=== PATIENT | female | born 1955 | race Caucasian/White ===

== ENCOUNTER → 2017-06-25 | Outpatient (CLI) | payer BC ==
[~2017-06-25] MED LIST: ATORVASTATIN PO; Z.0.LISINOPRIL40 MG PO; Z.0.LOPRESSOR25 MG PO
--- NOTE | 2017-06-25 13:59 | Diagnostic Imaging Report ---
EXAM: DXA BONE DENSITY INDICATIONS: Menopausal COMPARISON: None. FINDINGS: Proximal left femur bone mineral density (BMD) (g/cm2):0.737 Femur T-score (standard deviation relative to young adult mean BMD): -1.7 Femur Z-score (standard deviation relative to age-matched control group):-0.5 Lumbar bone mineral density (BMD) (g/cm2):0.819 Lumbar T-score (standard deviation relative to young adult mean BMD): -2.9 Lumbar Z-score (standard deviation relative to age-matched control group):-0.4 Change since prior exam (%): Femur:-1.1% Spine:3.3% Change since oldest prior exam (%): Femur:-1.2% Spine:+5.1% CONCLUSION: 1. Bone mineral density in the left femur is classified as osteopenia. Fracture risk is moderate. 2. Bone mineral density in the spine is classified as osteopenia. Fracture risk is moderate. World Health Organization Classification: *The Z-score is provided for informational purposes. The T-score is preferable for clinical decisions. When comparing exams, a change of >4% is considered statistically significant. SUGGESTED RECOMMENDATIONS: Normal \T\ Osteopenia:Consideration should be given to use of calcium supplementation, daily multiple vitamins and adequate exercise, as preventive measures against osteoporosis, if clinically indicated. Osteoporosis \T\ Severe Osteoporosis:In addition to the above, consideration should be given to medical therapy against osteoporosis, if clinically indicated. Dictated by: Spencer Chavez M.D. on 06/25/2017 at 13:59 Electronically approved by: Spencer Chavez M.D. on 06/25/2017 at 13:59
== END ==
LOC: MAMMO 13:01
PROVIDERS: ATTEND Internal Medicine
DX: Z12.31 Encounter for screening mammogram for malignant neoplasm of breast (principal)
CPT/HCPCS: 77067; 77080

== ENCOUNTER 2017-09-30 12:04 | Emergency (ER) | payer BC ==
[~2017-09-30] VITALS: Ht 165.1 cm; Wt 62.6 kg
== END 2017-09-30 14:32 | disposition home or self-care (01) ==
LOC: FSED 12:04
DX: M79.661 Pain in right lower leg (principal); I10 Essential (primary) hypertension
CPT/HCPCS: 80048; 93971; 99283

== ENCOUNTER → 2017-11-23 | Day surgery (SDC) | payer BC ==
[~2017-11-23] MED LIST changes: +ASPIR 8181 MG PO; +FENTANYL CITRATE/PF 100MCG/2 ML INJ ONE; +MIDAZOLAM HCL 2 MG/2 ML VIAL ONE; +PROPOFOL IV EMULSION 10 MG/ML 50 ML VIAL ONE
[2017-11-23 13:40] VITALS: BP 125/68
--- NOTE | 2017-11-23 13:48 | Operative Report ---
DATE OF PROCEDURE: November 23, 2017 REFERRING PHYSICIAN: Dr. Perez Peña PROCEDURE PERFORMED: Colonoscopy with polypectomy and biopsies. INDICATIONS FOR COLONOSCOPY: Colorectal cancer screening. History of ulcerated, sessile lesion in distal sigmoid colon. History of colon polyps. MEDICATION: Patient was done under MAC. Please see anesthesiologist's note. PROCEDURE: With the patient in the left lateral decubitus position, the flexible fiberoptic Olympus colonoscope was inserted into the rectum with ease and advanced all the way to the cecum. It was then withdrawn slowly. Mucosa overlying the cecum appeared to be within normal limits. Of note, diverticular disease was noted scattered throughout the colon. The ascending, transverse and descending colon, other than for diverticulosis, appeared to be within normal limits. An approximately 1.8 friable, sessile lesion was noted in the distal sigmoid colon, and that was biopsied and partially resected per snare electrocautery. The polypectomy site was hemoclipped. A minute polyp was also noted distal to the aforementioned lesion that was hot biopsied. The rectum appeared to be within normal limits. The scope was then retroflexed into the distal rectum, and small internal hemorrhoids were noted, none of which was actively bleeding. The scope was then straightened out. It was subsequently withdrawn. Patient tolerated the procedure well. IMPRESSION 1. Pandiverticulosis. 2. Approximately 1.8-cm, friable, sessile lesion in distal sigmoid colon, biopsied and partially resected per snare electrocautery. Polypectomy site prophylactically hemoclipped. 3. Minute polyp, distal sigmoid, hot biopsied. 4. Internal hemorrhoids, none actively bleeding. PLAN: Follow up histology. Initiate high-fiber, low-fat diet. Initiate high-fiber supplement. Timing of followup colonoscopy pending pathology report. Job#: [id number] cc:PEREZ PEÑA MD
== END | disposition home or self-care (01) ==
LOC: OR 09:29
PROVIDERS: ATTEND Internal Medicine Gastroenterology
DX: Z12.11 Encounter for screening for malignant neoplasm of colon (principal); K63.5 Polyp of colon; K63.89 Other specified diseases of intestine; K57.30 Diverticulosis of large intestine without perforation or abscess without bleeding; K64.8 Other hemorrhoids; K44.9 Diaphragmatic hernia without obstruction or gangrene; I10 Essential (primary) hypertension; E78.5 Hyperlipidemia, unspecified; I45.10 Unspecified right bundle-branch block; R00.1 Bradycardia, unspecified; Z01.810 Encounter for preprocedural cardiovascular examination; Z79.82 Long term (current) use of aspirin; Z85.3 Personal history of malignant neoplasm of breast
CPT/HCPCS: 45384; 45385; 93005; J2250; 45380

== ENCOUNTER 2018-05-17 12:34 | Emergency (ER) | payer BC ==
[~2018-05-17] VITALS: Ht 165.1 cm; Wt 62.6 kg
[~2018-05-17 12:34] MED LIST changes: -FENTANYL CITRATE/PF 100MCG/2 ML INJ ONE; -MIDAZOLAM HCL 2 MG/2 ML VIAL ONE; -PROPOFOL IV EMULSION 10 MG/ML 50 ML VIAL ONE
--- NOTE | 2018-05-17 13:59 | Diagnostic Imaging Report ---
Exam: AP pelvis and right hip History: Pain Comparison: None. Findings: No fracture or malalignment. Acetabular over coverage with proximal profunda. No significant hip arthropathy. No abnormal soft tissue calcification or soft tissue defect. Impression: No acute osseous abnormality Signed by: Dr. Gualberto Kennedy M.D. on 05/17/2018 1:55 PM
== END 2018-05-17 14:09 | disposition home or self-care (01) ==
LOC: FSED 12:34
DX: M25.551 Pain in right hip (principal); I10 Essential (primary) hypertension; E78.5 Hyperlipidemia, unspecified
CPT/HCPCS: 99283

== ENCOUNTER 2018-06-14 11:43 | Emergency (ER) | payer BC ==
[~2018-06-14] VITALS: Ht 160 cm; Wt 60.3 kg
[2018-06-14] MEDS: SODIUM CHLORIDE 0.9% 1000ML 1,000 ML IV SCH ×2 (12:34→13:48)
--- NOTE | 2018-06-14 13:59 | Diagnostic Imaging Report ---
EXAM: CT ABDOMEN AND PELVIS with IV CONTRAST DATE: 06/14/2018 Time stamp on Exam: 12:48 PM INDICATION: Left lower quadrant pain COMPARISON: None TECHNIQUE: The abdomen and pelvis were scanned using a multidetector helical scanner. Coronal and sagittal reformations were obtained. Routine protocol performed. Low-dose technique was utilized to maintain the lowest dose possible to the patient. IV Contrast: 100 cc of Isovue-370 Oral Contrast: None Radiation Dose: Total DLP 423.29 mGy*cm Estimated effective dose: DLP x 0.015 x size factor FINDINGS: LOWER THORAX: No consolidations LIVER: Fatty infiltration of the liver without evidence of mass or capsular irregularity. BILIARY: The gallbladder is unremarkable. No ductal dilatation. SPLEEN: No masses PANCREAS: No masses ADRENALS: No nodules KIDNEYS: Symmetric perfusion. No enhancing masses. No hydronephrosis. Right upper pole renal cystic lesion. GI TRACT: Scattered diverticula throughout the colon most predominant in the left colon. Wall thickening in the sigmoid colon region with small adjacent fluid collection likely represents diverticulitis but malignancy could have a similar appearance. There is increased vascularity involving the inferior mesenteric vein in this region. VESSELS: Mild vascular calcification. PERITONEUM/RETROPERITONEUM: No free air or fluid LYMPH NODES: No lymphadenopathy REPRODUCTIVE ORGANS: Unremarkable BLADDER: Unremarkable SOFT TISSUES: Unremarkable BONES: No suspicious bone lesions. Facet arthropathy in the lower left lumbar spine. Degenerative changes of the lower thoracic and lumbar spine. IMPRESSION: 1. Wall thickening in the sigmoid colon region suggestive of diverticulitis versus malignancy. 2. Follow-up colonoscopy would be of benefit. 3. Fatty infiltration of the liver without evidence of a mass. Signed by: Dr. Dimas Hernandez DO on 06/14/2018 1:56 PM
[2018-06-14 14:20] VITALS: BP 128/70
== END 2018-06-14 14:23 | disposition home or self-care (01) ==
LOC: FSED 11:43
DX: R10.32 Left lower quadrant pain (principal); K57.32 Diverticulitis of large intestine without perforation or abscess without bleeding; I10 Essential (primary) hypertension
CPT/HCPCS: 74177; 80053; 85025; 99283

== ENCOUNTER → 2018-06-27 | Outpatient (CLI) | payer BC ==
--- NOTE | 2018-06-27 09:57 | Diagnostic Imaging Report ---
Exam: Bone mineral density study. History: Osteopenia. Comparison: 06/25/2017 Discussion: Evaluation of the left hip, right hip, left forearm and lumbar spine was performed utilizing DEXA Hologic bone densitometer. The study is technically adequate. Left hip total bone mineral density: 0.746gm/cm2, T-score is -1.6, Z-score is -0.4. Left hip femoral neck bone mineral density: 0.663gm/cm2, T-score is -1.7, Z-score is -0.2. Lumbar spine total bone mineral density:0.807gm/cm2, T-score is-2.2, Z-score is -0.5. Impression: 1. Osteopenia of the left hip, fracture risk is increased 2. Osteopenia of the lumbar spine, fracture risk is increased The BMD change versus baseline is 0% and the BMD change versus previous 1.2% . Least significant change (LSC) for bone mineral density as provided by repairer auto clocks is 0.023 g/cm2 for lumbar spine and 0.027 g/cm2 for total hip. 10 -year fracture risk per WHO Fracture Risk Assessment Tool (FRAX) for: Major osteoporotic fracture is 8.8% Hip fracture is 1.0% The above fracture probability is calculated for an untreated patient. Fracture probably may be lower if the patient has received treatment. All treatment decisions require clinical judgment and consideration of individual patient factors, including patient preferences, comorbidities, previous drug use and risk factors not captured in the FRAX model (e.g. frailty, falls, vitamin D deficiency, increased bone turnover, interval significant decline in BMD). The patient's fracture risk is compared to an age-matched control. Medical evaluation for secondary causes of low bone bone mineral density may be appropriate. Correlate clinically for the necessity and timing of the next bone mineral density study. Signed by: Dr. Jong Noyola M.D. on 06/27/2018 9:54 AM
== END ==
LOC: MAMMO 08:15
PROVIDERS: ATTEND Internal Medicine
DX: Z12.31 Encounter for screening mammogram for malignant neoplasm of breast (principal); M81.0 Age-related osteoporosis without current pathological fracture
CPT/HCPCS: 77067; 77080

== ENCOUNTER 2018-08-08 09:40 | Emergency (ER) | payer BC ==
[~2018-08-08] VITALS: Ht 160 cm; Wt 60.3 kg
[2018-08-08] MEDS ORDERED: KETOROLAC TROMETHAMINE 30 MG/ML VIAL IV ONE (11:40)
--- NOTE | 2018-08-08 12:52 | Diagnostic Imaging Report ---
EXAM: CT ABDOMEN AND PELVIS with IV CONTRAST INDICATION: Lower abdominal pain COMPARISON: CT abdomen/pelvis with contrast 06/14/2018. TECHNIQUE: The abdomen and pelvis were scanned using a multidetector helical scanner. Coronal and sagittal reformations were obtained. Routine protocol performed. IV Contrast: 100 cc of Isovue-370 Oral Contrast: None Radiation Dose: Total DLP 368.3 mGy*cm Dose modulation, iterative reconstruction, and/or weight based adjustment of the mA/kV was utilized to reduce the radiation dose to as low as reasonably achievable. FINDINGS: LOWER THORAX: Unremarkable. LIVER/BILIARY: No evidence of mass. The gallbladder is unremarkable. No ductal dilatation. SPLEEN: No splenomegaly or mass. PANCREAS: No evidence of mass or ductal dilatation. ADRENALS: No adrenal nodule. KIDNEYS: No evidence of hydronephrosis or solid mass. There is a 3 mm nonobstructing left midpole stone. Right upper pole cyst. GI TRACT: Again noted are scattered diverticula, most pronounced in the sigmoid colon. There is focal wall thickening in the sigmoid colon, as before. There are surrounding inflammatory changes with interval increase in size of a fluid collection inferiorly, now measuring up to 4.2 x 3.4 x 7.5 cm, previously 3.1 x 3.2 x 6.1 cm. Collection contains fecal contents and air. The collection inferiorly abuts the bladder with surrounding inflammatory changes, and superiorly is ill-defined near the sigmoid colon. There is surrounding mesenteric vascular engorgement. No evidence of bowel obstruction. Small hiatal hernia. VESSELS: Scattered atherosclerotic changes of the abdominal aorta and branch vessels. PERITONEUM/RETROPERITONEUM: No free air or fluid LYMPH NODES: No lymphadenopathy PELVIC STRUCTURES: Unremarkable SOFT TISSUES: Unremarkable BONES: No acute osseous amount he. No suspicious lytic or blastic lesions. Degenerative changes of the visualized spine. IMPRESSION: Findings of sigmoid diverticulosis with extensive inflammatory changes and wall thickening suggestive of diverticulitis. Interval increase in size of an adjacent fluid collection, measuring up to 7.5 cm, previously 6.1 cm. The collection contains fecal contents and air, suggestive of fistula. Given the focal colonic wall thickening, malignancy is possible, and follow-up colonoscopy is recommended for further evaluation. Signed by: Dr. Steve Simpson MD on 08/08/2018 12:49 PM
[2018-08-08 13:24] VITALS: BP 123/82
== END 2018-08-08 13:30 | disposition home or self-care (01) ==
LOC: FSED 09:40
DX: R30.0 Dysuria (principal); D64.9 Anemia, unspecified; I10 Essential (primary) hypertension; E78.5 Hyperlipidemia, unspecified
CPT/HCPCS: 74177; 80048; 80076; 81003; 85025; 87086; 99283; J1885

== ENCOUNTER 2018-08-22 06:20 | Inpatient (IN) | payer BC ==
[2018-08-20 11:55] LABS: BASOPHILS % 0.4 % (0.0-1.0); EOSINOPHILS # (AUTO) 0.1 (0.0-0.4); HEMATOCRIT 35.3 % (34.2-44.1); HEMOGLOBIN 11.6 g/dL (12.0-16.0); LYMPHOCYTES # (AUTO) 1.2 (1.0-3.2); LYMPHOCYTES % 16.4 % (18.0-39.1); MEAN CORPUSCULAR HEMOGLOBIN 30.3 pg (28-32); MEAN CORPUSCULAR HGB CONC 32.9 g/dL (31-35); MEAN CORPUSCULAR VOLUME 92.2 fL (81-99); MONOCYTES # (AUTO) 0.6 (0.2-0.8); MONOCYTES % 8.3 % (4.4-11.3); NEUTROPHILS # (AUTO) 5.3 (2.1-6.9); NEUTROPHILS % 73.5 % (38.7-80.0); PLATELET COUNT 285 x10e3/uL (140-360); RED BLOOD COUNT 3.83 x10e6/uL (3.6-5.1)
[2018-08-20 12:13] LABS: ANION GAP 11.6 mmol/L (8-16); BLOOD UREA NITROGEN 11 mg/dL (7-26); BUN/CREATININE RATIO 15 (6-25); CALCIUM 9.9 mg/dL (8.4-10.2); CARBON DIOXIDE 29 mmol/L (22-29); CHLORIDE 103 mmol/L (98-107); CREATININE, SERUM 0.74 mg/dL (0.57-1.11); EST GLOMERULAR FILTRATION RATE > 60 ML/MIN (60-); GLUCOSE 105 mg/dL (74-118); POTASSIUM 4.6 mmol/L (3.5-5.1); SODIUM 139 mmol/L (136-145)
--- NOTE | 2018-08-20 12:38 | Diagnostic Imaging Report ---
EXAMINATION: CHEST 2 VIEWS INDICATION: ^MD ORDER ^PRE ADMIT COMPARISON: None FINDINGS: PA and lateral views TUBES and LINES: None. LUNGS: Lungs are well inflated. There is no evidence of pneumonia or pulmonary edema. PLEURA: No pleural effusion or pneumothorax. HEART AND MEDIASTINUM: The cardiomediastinal silhouette is unremarkable. Airways mildly calcified and tortuous. BONES AND SOFT TISSUES: No acute osseous lesion. Degenerative changes of spine. Small round metallic density projecting over right breast soft tissues. UPPER ABDOMEN: No free air under the diaphragm. IMPRESSION: No acute thoracic abnormality. Signed by: Dr. Kian Velasco MD on 08/20/2018 12:34 PM
[~2018-08-22] VITALS: Ht 167.6 cm; Wt 59.0 kg
[2018-08-22] VITALS (14 sets, daily range): BP systolic 96–118; BP diastolic 43–68
[~2018-08-22 06:20] MED LIST changes: +CITRACAL + D E1 EACH PO; +CRAN-MAX500 MG PO; +OMEGA 3 1,0001 EACH PO; +[UNRECOGNIZED DRUG - OTHER] PO
[2018-08-22] MEDS ORDERED: LEVAQUIN500 MG PO (07:25)
[2018-08-22] MEDS ORDERED: FLAGYL250 MG PO (07:26)
[2018-08-22] MEDS ORDERED: ONDANSETRON HCL INJ 2MG/ML 2ML 2 MG/ML VIAL IV PRN (11:45)
[2018-08-22] MEDS ORDERED: HYDROMORPHONE 0.2MG/ML-SOD CHL 30ML PCA SYRINGE IV PRN (11:45)
[2018-08-22] MEDS ORDERED: NALOXONE HCL INJ 0.4 MG/ML AMP IV PRN (11:45)
[2018-08-22] MEDS ORDERED: ACETAMINOPHEN 1000 MG/100 ML IV PRN (11:45)
[2018-08-22] MEDS ORDERED: HYDROMORPHONE 2MG/ML 2 MG/ML ML ONE (11:52)
[2018-08-22] MEDS: SODIUM CHLORIDE 0.9% 250ML IRRIG IR SCH ×4 (12:57→23:33)
[2018-08-22] MEDS: DEXTROSE 5%/LACTATED RINGERS 1,000 ML IV SCH ×2 (13:00→23:08)
--- NOTE | 2018-08-22 13:20 | NUR ---
patient received from OR. placed on monitor. see admit assess. midline abd incision with dry and intact dressing in place. CESARIO x1 with minimal bloody drainage. NGT to low cont suction. SCD's in place. D5LR at 100cc/hr. NONFARM ANIMAL CARETAKER dilaudid in place and pain well controlled. BP slightly low 89/44 at this time. will monitor closely. family at BS.
[2018-08-22] MEDS: METRONIDAZOLE 500MG/NS 100ML 100 ML IV SCH ×3 (13:35→23:37)
[2018-08-22] MEDS: CEFTRIAXONE SOD 1 GM/NS 50 ML 50 ML IV SCH (13:35)
[2018-08-22] MEDS: PANTOPRAZOLE 40 MG 10ML VIAL IV SCH (14:50)
--- NOTE | 2018-08-22 16:04 | Consultation ---
DATE OF CONSULTATION: 08/22/2018 REASON FOR CONSULTATION: Medical management. HISTORY OF PRESENT ILLNESS: This is a 62-year-old white woman, who was recently diagnosed with sigmoid diverticulitis with adjacent pelvic abscess. Today, the patient underwent exploratory laparotomy with low anterior colon resection, left salpingo-oophorectomy, and drainage of abscess. The surgery was performed by Dr. Samuel Galicia. The patient tolerated the surgery quite well. Two days prior to surgery, the patient's white blood cell count was 7200 with 73% segmented neutrophils. The patient's hemoglobin was 11.86 g/dL. Also 2 days prior to admission, the patient's BUN and creatinine were 11 and 0.74 respectively with potassium of 4.6. The patient is admitted to the intensive care unit from the operating room. REVIEW OF SYSTEMS: GENERAL: Weight, she has lost 5 pounds over the last few weeks because of poor appetite. No fever or chills lately. HEENT: No headaches. No visual changes. CARDIOVASCULAR/RESPIRATORY: No chest pain. No shortness of breath or cough. GI: She has a history of diverticular disease and was initially diagnosed with diverticulitis on August 09, 2018. The patient has been on metronidazole and levofloxacin for the last 2 weeks. The patient has a history of recurrent bouts of diverticulitis. : No UTI symptoms. NEUROMUSCULAR: No limb weakness or numbness. PAST MEDICAL HISTORY: 1. Hypertensive heart disease. 2. Diverticular disease. 3. Hyperlipidemia. PAST SURGICAL HISTORY: 1. section. 2. Bladder suspension in October 2017. 3. Colonoscopy in October 2017, which was unremarkable, but did reveal diverticular disease. 4. Status post exploratory laparotomy with colon resection and left salpingo-oophorectomy today. FAMILY HISTORY: The patient has a sister, who had breast cancer in her 40s and hypertension in brother and father, and brother with diabetes mellitus. SOCIAL HISTORY: This woman is retired. She is , lives with her . She drinks alcohol socially. Denies any history of tobacco or illicit drug use. MEDICATIONS: 1. Metronidazole 500 mg t.i.d. for the last two weeks. 2. Levofloxacin 500 mg daily for the last two weeks. 3. Calcium with vitamin D once daily. 4. Cranberry extract once daily. 5. Lisinopril 40 mg daily. 6. Metoprolol tartrate 25 mg b.i.d. 7. [employer]-3 fish oil 1000 mg daily. 8. Atorvastatin 10 mg at bedtime. 9. Women's vitamin once daily. PHYSICAL EXAMINATION: GENERAL: She is awake, alert, fluent, in distress, very pleasant. She is currently in the intensive care unit. Her and adult daughter are at bedside. VITAL SIGNS: Height 5 feet 6 inches, weight 126 pounds, BMI is 20. Blood pressure 96/43, pulse 60, respiratory rate is 16, temperature 96.2, and oxygen saturation 100% on room air. INTEGUMENT: Skin is warm and dry. Slight pallor. No jaundice or diaphoresis. HEENT: Anicteric sclerae with moist mucous membranes. The patient has a nasogastric tube in place. NECK: Supple. CARDIOVASCULAR: Distant heart sounds. Regular rate and rhythm. LUNGS: No rales. No rhonchi or wheezes. ABDOMEN: Soft. No bowel sounds are auscultated. Her abdominal surgical incision is currently dressed. EXTREMITIES: No edema or deformity. NEUROLOGIC: Intact. DIAGNOSES: 1. Status post exploratory laparotomy with colon resection, left salpingo- oophorectomy and pelvic abscess drainage. 2. Diverticular disease. 3. Hypertensive heart disease. PLAN: 1. We will monitor the patient in the intensive care unit overnight. 2. Intravenous antibiotics. 3. Encourage incentive spirometer use to prevent atelectasis. 4. Mobilize with therapy. 5. We will follow hemoglobin and hematocrit as well as white blood cell count. 6. Follow electrolytes and renal function. 7. Pain control. I spent 45 minutes in the care of this intensive care unit patient. MD DELILAH Jacobs/FAITH /[id number]
[2018-08-22] MEDS: METOPROLOL TARTRATE 25 MG TAB PO SCH (17:40)
--- NOTE | 2018-08-22 17:55 | Operative Report ---
DATE OF PROCEDURE: 08/22/2018 SURGEON: Samuel Galicia MD PREOPERATIVE DIAGNOSES: Perforated sigmoid diverticulitis with left pelvic walled-off abscess. POSTOPERATIVE DIAGNOSES: Perforated sigmoid diverticulitis with left pelvic walled-off abscess. OPERATION PERFORMED: Exploratory laparotomy, low anterior colon resection, left salpingo oophorectomy and drainage of left pelvic abscess, and mobilization of the splenic flexure. NASCAR DRIVER: Dr. Alfie Galicia and DAVID Lamb. ANESTHESIA: General. COMPLICATIONS: None. ESTIMATED BLOOD LOSS: 100 mL. DESCRIPTION OF PROCEDURE: With the patient lying in bed in the supine position under good general endotracheal anesthesia, the abdomen was prepped with Betadine solution and draped in the usual manner. A lower midline incision was made through the patient's old scar, it was carried down through the subcutaneous tissue down to the midline fascia. The midline fascia was opened. Peritoneum was opened and the abdomen was entered. Upon entering the abdominal cavity, examination revealed that there was a palpable mass in the pelvis involving the colon, the uterus and the bladder opening stuck to the left side. Further exploration revealed that the patient had diverticulosis of the entire colon, but the area along the distal transverse colon started to have some more normal pliable appearing colon, which we decided to use this area as the proximal margin of resection. The rest of the abdominal exploration was otherwise within normal limits. The left colon was then mobilized of the lateral gutter and the splenic flexure was brought down. The splenic flexure was then mobilized downward using the EnSeal device and the colon was easily mobilized all the way down to the mid transverse colon. Once this was done, the distal transverse colon was then divided with an application of a THI-75 stapler and the mesentery of the colon was then slowly and carefully taken down using the EnSeal device all the way down to the sigmoid colon at which point the inflammatory mass was present. At this point, we slowly and carefully the bladder from the uterus and immediately an abscess was entered, which was all aspirated. There was a collection that was being walled off by the uterus and the left adnexa and the bladder all of this was aspirated and the bladder was then from the uterus. The pedicle of the left adnexa was then ligated with 0-Vicryl suture ligature and the adnexa was then divided with the EnSeal device. The tube and ovary were then swung medially that were totally plastered to the horn of the uterus on the left side from the inflammatory process and all of this was resected with the horn of the uterus oversewn with interrupted [id number] of 0 Vicryl. This gave us a satisfactory resection without any bleeding and the left ovary and tube were sent for pathological examination. The colon was then from the uterus underneath and the upper rectum was then freed up and divided between clamps and the rest of the mesentery of the sigmoid colon was then taken down with the EnSeal device and the colon was sent for pathological examination. Proximal and distal ends of the colon were then cleared for and prepared for anastomosis and the transverse colon was then brought down to the upper rectum. A posterior row of interrupted 3-0 silks was then done. The proximal staple line was removed and an internal row of 3-0 chromic was then done all the way around. After this was done, gloves and instruments were exchanged and the anastomosis was completed with anterior seromuscular 3-0 silk sutures. This gave us a satisfactory anastomosis without any tension. The whole area was then thoroughly irrigated. Perfect hemostasis was ascertained. A 10 flat Beau-Guillermo was then left and brought out through the left lower quadrant and placed in the pelvis in the area of the previous collection and the abdomen was then closed in layers. The peritoneum was closed with a running suture of #1 Vicryl. The midline fascia was closed with a running suture of #1 Vicryl and the skin was closed with clips. A dressing was applied. The sponge, lap, and needle count was correct. The patient tolerated the procedure well and returned to the recovery room in stable condition. MD LAURIE Betancur/FAITH /[id number]
[2018-08-22] MEDS ORDERED: DEXAMETHASONE SOD PHOS INJ 4 MG/ML VIAL ONE (18:18)
[2018-08-22] MEDS ORDERED: NEOSTIGMINE 5 MG/5ML SYR ONE (18:18)
[2018-08-22] MEDS ORDERED: LIDOCAINE HCL 2% LOCAL INJ 5 ML SDV VIAL INJ ONE (18:18)
[2018-08-22] MEDS ORDERED: SEVOFLURANE INHAL SOLN 250 ML PEN BTL ONE (18:18)
[2018-08-22] MEDS ORDERED: ACETAMINOPHEN 1000 MG/100 ML IV ONE (18:18)
[2018-08-22] MEDS ORDERED: CEFOXITIN SOD 1 GM VIAL ONE (18:18)
[2018-08-22] MEDS ORDERED: ONDANSETRON HCL INJ 2MG/ML 2ML 2 MG/ML VIAL ONE (18:18)
[2018-08-22] MEDS ORDERED: PHENYLEPHRINE HCL 1% 10 MG/ML VIAL ONE (18:18)
[2018-08-22] MEDS ORDERED: GLYCOPYRROLATE INJ 1MG/ 5 ML SYR ONE (18:18)
[2018-08-22] MEDS ORDERED: ROCURONIUM BROMIDE 10 MG/ML 5ML VIAL ONE (18:18)
[2018-08-22] MEDS ORDERED: PROPOFOL IV EMULSION 10 MG/ML 20 ML VIAL ONE (18:18)
[2018-08-22] MEDS ORDERED: KETOROLAC TROMETHAMINE 30 MG/ML VIAL ONE (18:18)
[2018-08-22] MEDS ORDERED: MIDAZOLAM HCL 2 MG/2 ML VIAL ONE (18:46)
[2018-08-22] MEDS ORDERED: FENTANYL CITRATE/PF 100MCG/2 ML INJ ONE (18:46)
[2018-08-23] VITALS (20 sets, daily range): BP systolic 103–168; BP diastolic 58–91
[2018-08-23] MEDS: SODIUM CHLORIDE 0.9% 250ML IRRIG IR SCH ×5 (04:13→19:45)
[2018-08-23 04:49] LABS: BASOPHILS % 0.1 % (0.0-1.0); HEMATOCRIT 30.3 % (34.2-44.1); HEMOGLOBIN 9.9 g/dL (12.0-16.0); LYMPHOCYTES # (AUTO) 0.5 (1.0-3.2); LYMPHOCYTES % 4.1 % (18.0-39.1); MEAN CORPUSCULAR HEMOGLOBIN 30.1 pg (28-32); MEAN CORPUSCULAR HGB CONC 32.7 g/dL (31-35); MEAN CORPUSCULAR VOLUME 92.1 fL (81-99); MONOCYTES # (AUTO) 0.6 (0.2-0.8); MONOCYTES % 4.6 % (4.4-11.3); NEUTROPHILS # (AUTO) 11.9 (2.1-6.9); NEUTROPHILS % 90.7 % (38.7-80.0); PLATELET COUNT 256 x10e3/uL (140-360); RED BLOOD COUNT 3.29 x10e6/uL (3.6-5.1); RED CELL DISTRIBUTION WIDTH 14.3 % (11.7-14.4)
[2018-08-23 05:08] LABS: ALANINE AMINOTRANSFERASE 11 IU/L (0-55); ALBUMIN 2.6 g/dL (3.5-5.0); ALBUMIN/GLOBULIN RATIO 0.8 (0.8-2.0); ALKALINE PHOSPHATASE 32 IU/L (40-150); ANION GAP 11.3 mmol/L (8-16); BLOOD UREA NITROGEN 13 mg/dL (7-26); BUN/CREATININE RATIO 17 (6-25); CALCIUM 8.7 mg/dL (8.4-10.2); CARBON DIOXIDE 23 mmol/L (22-29); CHLORIDE 105 mmol/L (98-107); CREATININE, SERUM 0.77 mg/dL (0.57-1.11); EST GLOMERULAR FILTRATION RATE > 60 ML/MIN (60-); GLUCOSE 188 mg/dL (74-118); POTASSIUM 4.3 mmol/L (3.5-5.1); SODIUM 135 mmol/L (136-145)
[2018-08-23] MEDS: METRONIDAZOLE 500MG/NS 100ML 100 ML IV SCH ×3 (05:20→18:01)
--- NOTE | 2018-08-23 07:35 | NUR ---
Dysrythmia. Pt has displayed sinus arrhythmia with PAC's since arrival to ICU. The pt also appears to flip her axis frequently. The heart rate has been from 59 [address] Guerrier's answering service to notify. On coming nurse Lorene GARCIA and the charge nurse are also aware.
--- NOTE | 2018-08-23 07:49 | NUR ---
Consult for Dr Jeffries has been called to Dr Vizcaino.
[2018-08-23] MEDS: METOPROLOL TARTRATE INJ 1 MG/ML VIAL IV SCH (08:21)
[2018-08-23] MEDS: PANTOPRAZOLE 40 MG 10ML VIAL IV SCH (08:22)
[2018-08-23] MEDS: LISINOPRIL 20 MG TAB PO SCH (08:22)
[2018-08-23] MEDS: METOPROLOL TARTRATE 25 MG TAB PO SCH ×2 (08:22→16:07)
[2018-08-23] MEDS ORDERED: LISINOPRIL PO SCH (09:00)
--- NOTE | 2018-08-23 10:41 | NUR ---
pt ambulating sitting in chair. espinoza removed as per order.
[2018-08-23] MEDS: DEXTROSE 5%/LACTATED RINGERS 1,000 ML IV SCH ×2 (13:20→18:01)
[2018-08-23] MEDS: CEFTRIAXONE SOD 1 GM/NS 50 ML 50 ML IV SCH (14:46)
--- NOTE | 2018-08-23 16:27 | NUR ---
called dr dhillon to see if pt can go to [facility] w/ tele as per dr winter. ok to place espinoza cath if no urine by 1939.
--- NOTE | 2018-08-23 19:35 | NUR ---
NURSING REPORT GIVEN TO MERRITT GARCIA AT [facility]
--- NOTE | 2018-08-23 20:27 | NUR ---
RECEIVED PATIENT IN BEDSIDE CHAIR IN STABLE CONDITION, FAMILY MEMBER AT SIDE. CALL LIGHT WITHIN REACH. NO NEEDS VOICED. WILL CONTINUE TO MONITOR THE PATIENT.
--- NOTE | 2018-08-23 23:16 | Consultation ---
DATE OF CONSULTATION: 08/23/2018 Cardiology Consult Note REASON FOR CONSULT: Nonsustained ventricular tachycardia. CHIEF COMPLAINT: Abdominal pain. HISTORY OF PRESENT ILLNESS: The patient is a 62-year-old female with no prior history of cardiovascular disease who presented for abdominal surgery. She underwent surgery yesterday without any complications, is doing well from postsurgical point of view, was noted to have about 10 beats of nonsustained ventricular wide-complex tachycardia on telemetry. She was asymptomatic at that time. She does not report any dizziness, palpitations, chest pain or shortness of breath. She has been seen previously in our clinic for abnormal EKG, and a stress test and echocardiogram done at that time were completely normal. She does not have any complaints at this time other than some postsurgical pain. PAST MEDICAL HISTORY: 1. Hypertension. 2. Hyperlipidemia. 3. Diverticular disease. PAST SURGICAL HISTORY: 1. section. 2. Bladder suspension. 3. Colonoscopy. 4. Exploratory laparotomy with colon resection and left salpingo-oophorectomy earlier this admission. SOCIAL HISTORY: Drinks socially. No history of tobacco or drug use. FAMILY HISTORY: Noncontributory. OUTPATIENT MEDICATIONS: Reviewed. ALLERGIES: NO KNOWN DRUG ALLERGIES. REVIEW OF SYSTEMS: As per HPI, otherwise negative. OBJECTIVE: VITAL SIGNS: Temperature afebrile, pulse 68, respiratory rate 20, blood pressure 136/66, saturating 97% on room air. GENERAL: Well-developed, well-nourished white female, in no acute distress. CARDIOVASCULAR: Regular rate and rhythm. No murmurs, rubs, or gallops. Palpable carotid pulses. Palpable radial pulses. Lower extremity without any edema or ulcerations. Warm, well perfused. ABDOMEN: Soft. Tenderness to palpation near the surgical site. No rebound or guarding. NEURO AND PSYCH: Alert and oriented to person, place, and time. Normal affect. INPATIENT MEDICATIONS: Reviewed. TELEMETRY DATA: Reviewed. One episode of nonsustained ventricular tachycardia. Otherwise, no significant arrhythmias. ASSESSMENT: 1. Nonsustained ventricular tachycardia. 2. Hypertension. PLAN: Continue metoprolol. Keep potassium above 4 and magnesium above 2. Currently asymptomatic, has had a normal echo and a stress test last year in the office. No risk factors. No other cardiovascular symptoms. Nonsustained ventricular tachycardia, likely in the setting of postoperative state. Continue monitoring closely on telemetry. Further testing only indicated if continues to have more ventricular tachycardia. Otherwise, no further therapy is needed. Thank you for this consult. We will continue to follow. MD TOMMY Sahni/MODL /[id number]
[2018-08-24] VITALS (7 sets, daily range): BP systolic 141–157; BP diastolic 55–76
[2018-08-24] MEDS: SODIUM CHLORIDE 0.9% 250ML IRRIG IR SCH ×7 (00:37→23:45)
[2018-08-24] MEDS: METRONIDAZOLE 500MG/NS 100ML 100 ML IV SCH ×4 (00:50→17:35)
[2018-08-24] MEDS: DEXTROSE 5%/LACTATED RINGERS 1,000 ML IV SCH ×2 (04:33→16:41)
[2018-08-24 06:03] LABS: BASOPHILS % 0.1 % (0.0-1.0); HEMATOCRIT 31.3 % (34.2-44.1); HEMOGLOBIN 10.1 g/dL (12.0-16.0); LYMPHOCYTES # (AUTO) 1.3 (1.0-3.2); LYMPHOCYTES % 9.6 % (18.0-39.1); MEAN CORPUSCULAR HEMOGLOBIN 30.1 pg (28-32); MEAN CORPUSCULAR HGB CONC 32.3 g/dL (31-35); MEAN CORPUSCULAR VOLUME 93.2 fL (81-99); MONOCYTES # (AUTO) 0.7 (0.2-0.8); MONOCYTES % 5.3 % (4.4-11.3); NEUTROPHILS # (AUTO) 11.1 (2.1-6.9); NEUTROPHILS % 84.5 % (38.7-80.0); PLATELET COUNT 217 x10e3/uL (140-360); RED BLOOD COUNT 3.36 x10e6/uL (3.6-5.1); RED CELL DISTRIBUTION WIDTH 14.6 % (11.7-14.4)
[2018-08-24 06:20] LABS: ALANINE AMINOTRANSFERASE 9 IU/L (0-55); ALBUMIN 2.6 g/dL (3.5-5.0); ALBUMIN/GLOBULIN RATIO 0.8 (0.8-2.0); ALKALINE PHOSPHATASE 36 IU/L (40-150); BLOOD UREA NITROGEN 7 mg/dL (7-26); BUN/CREATININE RATIO 10 (6-25); CALCIUM 8.8 mg/dL (8.4-10.2); CARBON DIOXIDE 31 mmol/L (22-29); CHLORIDE 105 mmol/L (98-107); CREATININE, SERUM 0.67 mg/dL (0.57-1.11); EST GLOMERULAR FILTRATION RATE > 60 ML/MIN (60-); GLUCOSE 131 mg/dL (74-118); MAGNESIUM 1.7 MG/DL (1.3-2.1); SODIUM 141 mmol/L (136-145)
--- NOTE | 2018-08-24 07:11 | NUR ---
report given to oncoming nurse for continuity of care. patient in stable condition. no needs voiced at this time. bed locked and in lowest position, call light within easy reach.
[2018-08-24] MEDS: METOPROLOL TARTRATE INJ 1 MG/ML VIAL IV SCH (09:00)
[2018-08-24] MEDS: PANTOPRAZOLE 40 MG 10ML VIAL IV SCH ×2 (09:00→10:11)
[2018-08-24] MEDS: METOPROLOL TARTRATE 25 MG TAB PO SCH ×2 (09:30→21:00)
--- NOTE | 2018-08-24 12:30 | NUR ---
OOB WITH STANDBY ASSIST TO BS COMMODE, CALL LIGHT WITHIN REACH
[2018-08-24] MEDS: LISINOPRIL 20 MG TAB PO SCH (12:32)
--- NOTE | 2018-08-24 13:29 | Progress Note ---
DATE: 08/24/2018 Cardiology Progress Note SUBJECTIVE: The patient denies chest pain or shortness of breath. OBJECTIVE: VITAL SIGNS: Temperature 96.6 degrees, pulse 66 respiratory rate 16, blood pressure 141/76, oxygen saturation 97% on room air. GENERAL: Awake, alert, in no acute distress. LUNGS: Clear to auscultation bilaterally. No wheezes or crackles. CARDIOVASCULAR: Normal rate, regular rhythm. No murmur. Normal S1, S2. ABDOMEN: Soft, nontender. EXTREMITIES: No edema. NEURO: Nonfocal exam. CARDIAC MEDICATIONS: Lisinopril 40 mg p.o. daily, metoprolol 25 mg p.o. b.i.d. LABORATORY DATA: WBC 13.13, hemoglobin 10.1, hematocrit 31.3, platelets 217. Sodium 141, potassium 4, chloride 105, CO2 of 31, BUN 7, creatinine 0.67. TELEMETRY: Sinus bradycardia. IMPRESSION: 1. Nonsustained ventricular tachycardia. 2. Hypertension. RECOMMENDATIONS: Continue current cardiac medications. Monitor and replete electrolytes. No further cardiac evaluation is indicated at this time as the patient had a normal echo and stress test last year at the office. Monitor the patient closely on telemetry. Thank you for this consult. We will continue to follow. Suyapa Vizcaino MD ABS/MODL /[id number]
--- NOTE | 2018-08-24 13:40 | Progress Note ---
DATE: SUBJECTIVE: The patient is a 62-year-old female, who came with sigmoid diverticulitis with perforation, had a partial colectomy done. The patient is doing well. OBJECTIVE: VITAL SIGNS: Blood pressure 146/67, temperature 96.6 degrees Farenheit, heart rate 60 per minute, respiratory rate 16 per minute oxygen saturation 97%. HEART: Regular rhythm. Normal S1, S2 sounds. LUNGS: Clear bilaterally. ABDOMEN: Soft. She has an incision from the surgery of course with a CESARIO drain. IMPRESSION: 1. Hypertension. 2. Acute anemia. 3. Premature ventricular contractions. PLAN OF TREATMENT: Continue n.p.o. status. Continue NG tube to suction. Continue ceftriaxone 2 g IV daily, metronidazole 500 g IV q.6 hours, D50 with Ringer's lactate 100 cc an hour. Continue with PURE PAK MACHINE OPERATOR pump. Continue metoprolol 1 mg IV daily, naloxone 0.5 mg IV as needed for excessive sedation, continue metoprolol 25 mg twice a day, Protonix 40 mg daily, Zofran 4 mg IV q.4 hours as needed, lisinopril [address] Galicia will decide when to remove the NG tube. So far, she has good bowel sounds. MD JOSE Stark/FAITH /[id number]
[2018-08-24] MEDS: CEFTRIAXONE SOD 1 GM/NS 50 ML 50 ML IV SCH (14:00)
--- NOTE | 2018-08-24 17:30 | NUR ---
NGT CLAMPED PER MD WADE
--- NOTE | 2018-08-24 19:10 | NUR ---
SPOKE WITH MD Olamide WETZEL, ORDERS NOTED TO REMOVE NGT
--- NOTE | 2018-08-24 19:58 | NUR ---
Received patient at the bedside, no acute distress noted, no sob noted, pain to abd 10, family member at the bedside, call light within reach, in stable condition, will continue to monitor.
[2018-08-25] VITALS (8 sets, daily range): BP systolic 155–174; BP diastolic 72–78
[2018-08-25] MEDS: METRONIDAZOLE 500MG/NS 100ML 100 ML IV SCH ×4 (00:17→17:30)
[2018-08-25] MEDS: DEXTROSE 5%/LACTATED RINGERS 1,000 ML IV SCH ×3 (05:50→21:00)
[2018-08-25 06:02] LABS: BASOPHILS % 0.1 % (0.0-1.0); EOSINOPHILS # (AUTO) 0.2 (0.0-0.4); EOSINOPHILS % 2.8 % (0.0-6.0); HEMATOCRIT 29.2 % (34.2-44.1); HEMOGLOBIN 9.6 g/dL (12.0-16.0); LYMPHOCYTES # (AUTO) 1.6 (1.0-3.2); LYMPHOCYTES % 23.2 % (18.0-39.1); MEAN CORPUSCULAR HEMOGLOBIN 30.4 pg (28-32); MEAN CORPUSCULAR HGB CONC 32.9 g/dL (31-35); MEAN CORPUSCULAR VOLUME 92.4 fL (81-99); MONOCYTES # (AUTO) 0.5 (0.2-0.8); MONOCYTES % 7.6 % (4.4-11.3); NEUTROPHILS # (AUTO) 4.5 (2.1-6.9); NEUTROPHILS % 65.9 % (38.7-80.0); PLATELET COUNT 204 x10e3/uL (140-360); RED BLOOD COUNT 3.16 x10e6/uL (3.6-5.1); RED CELL DISTRIBUTION WIDTH 14.6 % (11.7-14.4)
[2018-08-25 06:32] LABS: ANION GAP 9.9 mmol/L (8-16); BLOOD UREA NITROGEN < 5 mg/dL (7-26); CALCIUM 8.7 mg/dL (8.4-10.2); CARBON DIOXIDE 30 mmol/L (22-29); CHLORIDE 104 mmol/L (98-107); CREATININE, SERUM 0.59 mg/dL (0.57-1.11); EST GLOMERULAR FILTRATION RATE > 60 ML/MIN (60-); GLUCOSE 120 mg/dL (74-118); SODIUM 141 mmol/L (136-145)
[2018-08-25 06:44] LABS: BUN/CREATININE RATIO 8 (6-25); POTASSIUM 2.9 mmol/L (3.5-5.1)
[2018-08-25] MEDS ORDERED: POTASSIUM CHLORIDE 20 MEQ TAB CR PO STA (06:59)
[2018-08-25] MEDS ORDERED: POTASSIUM CHLORIDE 20MEQ/100ML 100 ML IV STA ×2 (07:26→07:31)
--- NOTE | 2018-08-25 07:34 | NUR ---
Received a call from lab with critical lab result of potassium at 2.9L, Dr. Louie falcon, notified, and received orders, potassium 20 meq IV in 100mL infuse over 2 hrs and to repeat potassium level check at 3pm.
[2018-08-25] MEDS: METOPROLOL TARTRATE 25 MG TAB PO SCH ×2 (09:00→21:00)
[2018-08-25] MEDS: PANTOPRAZOLE 40 MG 10ML VIAL IV SCH (09:00)
[2018-08-25] MEDS: LISINOPRIL 20 MG TAB PO SCH (09:10)
--- NOTE | 2018-08-25 09:10 | NUR ---
Morning med pass completed and the pt. reports intermittent pain in the right side and was advised that she most likely is experiencing gas pattern movement and that today she should be out of bed more. She is also receiving replacement potassium and was advised that she will probably have minor burning pain due to this med. Hypoactive bowel sounds heard and pain is controlled with BOAT CANVAS INSTALLER pump.
[2018-08-25] MEDS ORDERED: BISACODYL 10 MG SUPP PR ONE (12:30)
[2018-08-25 12:34] LABS: EOSINOPHILS % (MANUAL) 2 % (0-7); LYMPHOCYTES % (MANUAL) 27 % (19-48); MONOCYTES % (MANUAL) 2 % (3.4-9.0); NEUTROPHILS % (MANUAL) 68 % (40-74)
[2018-08-25] MEDS: CEFTRIAXONE SOD 1 GM/NS 50 ML 50 ML IV SCH (12:38)
[2018-08-25] MEDS ORDERED: HYDRALAZINE HCL 20 MG/ML VIAL IV PRN (12:45)
--- NOTE | 2018-08-25 12:48 | NUR ---
Dr. Palma rounded and discontinued the wildlife conservation officer and the pt. was given supp as ordered per Dr. Suly Galicia.
[2018-08-25] MEDS ORDERED: CLONIDINE HCL 0.3MG/24 HR PATCH TOP SCH (14:00)
--- NOTE | 2018-08-25 14:00 | NUR ---
Visit made by the Spiritual Care Department Pastoral Visitor, Kalyani Mcdowell. PV provided pastoral presence, prayer, hospitality, and supportive listening. Pastoral Visitor informed pt/family of the scope of [employer] and availability. ELBERT DE PAZ Visitor Use Assistant Spiritual Care Department O: [phone] Pager: [phone] ([phone] number calling from)
--- NOTE | 2018-08-25 14:39 | Progress Note ---
DATE: Internal Medicine Progress Note SUBJECTIVE: Jayshree is doing well. NG tube is out. Telemetry is going to be discontinued since she does not have any arrhythmia and she is on a clear liquid diet. OBJECTIVE: HEART: Showed regular rhythm. Normal S1, S2 sound. LUNGS: Clear bilaterally. ABDOMEN: Soft. Bowel sounds are slightly decreased. VITAL SIGNS: Blood pressure 169/74, temperature 97.7, heart rate 54 per minute, respiratory rate 18 per minute, and oxygen saturation 98%. LABORATORY DATA: On BMP, sodium 141, potassium 2.9, chloride 104, CO2 of 30, BUN 55, and creatinine 0.59. Glucose 129. CBC, white count 6.85, hemoglobin 9.6, hematocrit 29.2, and platelet count 204,000. AST 14 and ALT 9. Total bilirubin 0.3. Alkaline phosphatase 36. ASSESSMENT: 1. Acute diverticulitis with perforation status post colostomy. 2. Hypertension. 3. Acute anemia. 4. Leukocytosis. 5. Hypokalemia. PLAN: Potassium has been replaced. We are going to recheck potassium initially today. Diet as tolerated as per Dr. Galicia. Continue physical therapy. MD JOSE Stark/FAITH /[id number]
--- NOTE | 2018-08-25 15:44 | Progress Note ---
DATE: 08/25/2018 Cardiology Progress Note SUBJECTIVE: The patient denies chest pain or shortness of breath. She has not had a bowel movement. NG tube was removed yesterday. OBJECTIVE: VITAL SIGNS: Temperature 97.7 degrees, pulse 54, respiratory rate 18, blood pressure 169/74, and oxygen saturation 98% on room air. GENERAL: Awake, alert, in no acute distress. LUNGS: Clear to auscultation bilaterally. No wheezes or crackles. CARDIOVASCULAR: Normal rate, regular rhythm. No murmur. Normal S1, S2. ABDOMEN: Soft, nontender. EXTREMITIES: No edema. NEURO: Nonfocal exam. CARDIAC MEDICATIONS: Lisinopril 40 mg p.o. daily, metoprolol tartrate 25 mg p.o. q.12 hours. LABORATORY DATA: WBC 6.85, hemoglobin 9.6, hematocrit 29.2, platelets 204. Sodium 141, potassium 2.9, chloride 104, CO2 30, BUN less than 5, creatinine 0.59. TELEMETRY: Normal sinus rhythm with brief episode of supraventricular tachycardia and nonsustained ventricular tachycardia. IMPRESSION: 1. Nonsustained ventricular tachycardia. 2. Supraventricular tachycardia. 3. Hypertension. RECOMMENDATIONS: Increase metoprolol given arrhythmias and elevated blood pressure. Continue current cardiac medications otherwise. Monitor and replete electrolytes. No further cardiac evaluation at this time as the patient had a normal echo and stress test last year at the office. Thank you for this consult. We will continue to follow. Suyapa Vizcaino MD ABS/MODL /[id number]
[2018-08-25] MEDS ORDERED: ONDANSETRON HCL 4 MG ORAL DISINTEGRATING TAB PO PRN (16:15)
--- NOTE | 2018-08-25 17:37 | NUR ---
The pt. has had several dark brown stools post receiving the docusate suppsitory. The PIPE LAYER HELPER continues to control the pt's pain.
--- NOTE | 2018-08-25 19:00 | NUR ---
RECEIVED PATIENT IN BEDSIDE REPORT. PATIENT A&OX3, NO S&S OF DISTRESS NOTED. AT BEDSIDE. BED LOCKED IN LOWEST POSITION, SIDE RAILS UP X2, CALL LIGHT IN REACH.
--- NOTE | 2018-08-25 20:53 | NUR ---
CALL PLACED TO MD Yuly WETZEL, ORDERS CLARIFIED THAT IT IS OKAY TO GIVE PO MEDS WITH SMALL SIPS OF WATER.
--- NOTE | 2018-08-25 23:50 | NUR ---
PATIENT'S HR NOTED TO BE HIGH AND IRREGULAR. CALL PLACED TO MD MATHUR, ORDERS RECEIVED.
[2018-08-26] VITALS (25 sets, daily range): BP systolic 99–152; BP diastolic 57–90
[2018-08-26] MEDS ORDERED: AMIODARONE HCL 150MG 100 ML IV ONE (00:15)
--- NOTE | 2018-08-26 00:15 | NUR ---
CALL PLACED TO MD MATHUR TO INFORM OF PATIENT'S EKG AND TELE REPORTS. ORDERS RECEIVED TO TRANSFER TO ICU.
[2018-08-26] MEDS ORDERED: AMIODARONE 900MG 500 ML IV NR ×2 (00:30→00:45)
--- NOTE | 2018-08-26 00:38 | NUR ---
PATIENT TRANSFERRED TO ICU AT THIS TIME.
[2018-08-26] MEDS ORDERED: AMIODARONE HCL 100 ML IV ONE (00:50)
--- NOTE | 2018-08-26 01:06 | NUR ---
CALL PLACED TO MD Yuly WETZEL TO INFORM HIM OF CHANGE IN PATIENT CONDITION.
[2018-08-26 04:57] LABS: BASOPHILS % 0.3 % (0.0-1.0); EOSINOPHILS % 0.6 % (0.0-6.0); HEMATOCRIT 32.6 % (34.2-44.1); HEMOGLOBIN 10.4 g/dL (12.0-16.0); LYMPHOCYTES # (AUTO) 1.2 (1.0-3.2); LYMPHOCYTES % 17.5 % (18.0-39.1); MEAN CORPUSCULAR HEMOGLOBIN 30.1 pg (28-32); MEAN CORPUSCULAR HGB CONC 31.9 g/dL (31-35); MEAN CORPUSCULAR VOLUME 94.2 fL (81-99); MONOCYTES # (AUTO) 0.5 (0.2-0.8); MONOCYTES % 7.5 % (4.4-11.3); NEUTROPHILS # (AUTO) 5.2 (2.1-6.9); NEUTROPHILS % 73.8 % (38.7-80.0); PLATELET COUNT 243 x10e3/uL (140-360); RED BLOOD COUNT 3.46 x10e6/uL (3.6-5.1); RED CELL DISTRIBUTION WIDTH 14.9 % (11.7-14.4)
[2018-08-26 05:21] LABS: ALANINE AMINOTRANSFERASE 9 IU/L (0-55); ALBUMIN 2.7 g/dL (3.5-5.0); ALBUMIN/GLOBULIN RATIO 0.8 (0.8-2.0); ALKALINE PHOSPHATASE 36 IU/L (40-150); ANION GAP 10.4 mmol/L (8-16); BLOOD UREA NITROGEN 7 mg/dL (7-26); BUN/CREATININE RATIO 11 (6-25); CALCIUM 9.3 mg/dL (8.4-10.2); CARBON DIOXIDE 31 mmol/L (22-29); CHLORIDE 100 mmol/L (98-107); CREATININE, SERUM 0.63 mg/dL (0.57-1.11); EST GLOMERULAR FILTRATION RATE > 60 ML/MIN (60-); GLUCOSE 140 mg/dL (74-118); MAGNESIUM 1.7 MG/DL (1.3-2.1); POTASSIUM 3.4 mmol/L (3.5-5.1); SODIUM 138 mmol/L (136-145)
[2018-08-26] MEDS: DEXTROSE 5%/LACTATED RINGERS 1,000 ML IV SCH (05:34)
[2018-08-26] MEDS: METRONIDAZOLE 500MG/NS 100ML 100 ML IV SCH ×5 (06:09→23:30)
[2018-08-26] MEDS: LISINOPRIL 20 MG TAB PO SCH (09:00)
[2018-08-26] MEDS: METOPROLOL TARTRATE 25 MG TAB PO SCH (09:00)
[2018-08-26] MEDS: PANTOPRAZOLE 40 MG 10ML VIAL IV SCH (09:00)
[2018-08-26] MEDS ORDERED: POTASSIUM CHLORIDE 20 MEQ TAB CR PO ONE (09:30)
[2018-08-26] MEDS ORDERED: MAGNESIUM SULFATE 2GM/50ML 50 ML IV ONE (10:30)
[2018-08-26] MEDS ORDERED: HYDROCODONE/APAP 7.5MG-325MG 1 EA TAB PO PRN (10:30)
[2018-08-26] MEDS ORDERED: AMIODARONE HCL 900 MG in DEXTROSE 5 % 500ML BOTTLE 500 ML IV SCH (11:00)
[2018-08-26] MEDS ORDERED: SODIUM CHLORIDE 0.9% 250ML 250 ML ONE (11:27)
[2018-08-26] MEDS ORDERED: POTASSIUM CHLORIDE 10MEQ EA PO ONE (12:00)
[2018-08-26] MEDS: CEFTRIAXONE SOD 1 GM/NS 50 ML 50 ML IV SCH (13:00)
--- NOTE | 2018-08-26 14:07 | Progress Note ---
DATE: 08/26/2018 Cardiology Progress Note SUBJECTIVE: The patient developed atrial fibrillation with rapid ventricular response late yesterday evening. She was transferred to the ICU for amiodarone drip. She currently denies chest pain or shortness of breath, but does state she did have palpitations during her atrial fibrillation with rapid ventricular response episode. OBJECTIVE: VITAL SIGNS: Temperature 97.9 degrees, pulse 64, respiratory rate 23, blood pressure 126/91, oxygen saturation 98% on room air. GENERAL: Awake, alert, in no acute distress. LUNGS: Clear to auscultation bilaterally. No wheezes or crackles. CARDIOVASCULAR: Normal rate, regular rhythm. No murmur. Normal S1, S2. ABDOMEN: Soft, nontender. EXTREMITIES: No edema. NEURO: Nonfocal exam. CARDIAC MEDICATIONS: 1. Amiodarone protocol. 2. Metoprolol tartrate 50 mg p.o. q.12 hours. 3. Lisinopril 40 mg p.o. daily. LABORATORY DATA: WBC 7.09, hemoglobin 10.4, hematocrit 32.6, platelets 243. Sodium 138, potassium 3.4, chloride 100, CO2 of 31, BUN 7, creatinine 0.63. TELEMETRY: Atrial fibrillation with rapid ventricular response overnight, now sinus bradycardia. IMPRESSION: 1. Paroxysmal atrial fibrillation with rapid ventricular response. 2. Nonsustained ventricular tachycardia. 3. Hyperlipidemia. RECOMMENDATIONS: Increase metoprolol. Start amiodarone p.o. The patient's CHADS-VASc score is 1 for hypertension. We will start aspirin 81 mg p.o. daily. Check D-dimer to evaluate for pulmonary embolism. Thank you for this consult. We will continue to follow. Suyapa Vizcaino MD ABS/MODL /[id number]
[2018-08-26] MEDS: AMIODARONE HCL 200 MG TAB PO SCH (17:05)
[2018-08-26] MEDS ORDERED: METOPROLOL TARTRATE 25 MG TAB PO SCH (18:00)
[2018-08-26] MEDS: METOPROLOL TARTRATE 50 MG TAB PO SCH ×2 (18:00→23:30)
--- NOTE | 2018-08-26 19:42 | Diagnostic Imaging Report ---
CT chest pulmonary embolism protocol CPT code: 29070 INDICATION: Shortness of breath, elevated d-dimer Ex lap and LAR 08/22/2018. ^R/O PE ^[id number] ^[id number] TECHNIQUE: Thin collimation axial images obtained through the level of the pulmonary arteries with additional imaging through the chest following the uneventful administration of 100 cc of low osmolar, nonionic intravenous contrast. Images reconstructed into coronal and sagittal MIPs for complete evaluation of the tortuous and overlapping pulmonary vascular structures and to reduce patient radiation dose. RADIATION DOSE: Total DLP: 463.97 mGy*cm Estimated effective dose: (DLP x 0.015 x size factor) mSv CTDIvol has been reviewed. It is below the limits set by the Radiation Protocol Committee (RPC). Dose reduction techniques used: Automated exposure control, adjustment of the mAs and/or kVp according to patient size, standardized low-dose protocol, and/or iterative reconstruction technique. COMPARISON: No relevant priors. Correlation is made with CT of the abdomen performed 08/08/2018. FINDINGS: Pulmonary artery: No filling defects are appreciated within the main, left, right, lobar or visualized segmental pulmonary arteries to suggest embolism. Main pulmonary artery measures 1.8 cm in diameter. Aorta: The ascending aorta is tortuous, measuring 3.5 cm in diameter. There are scattered calcifications Lymph nodes: No enlarged axillary, supraclavicular, mediastinal, or hilar lymph nodes. Thyroid: Normal in size without mass in the visualized parenchyma.. Mediastinum: The heart is mildly enlarged. No pericardial effusion. The esophagus is collapsed. Lungs: Right Lung: Diffusely hyperinflated. Wispy bands of subsegmental atelectasis in the middle and anterior basal segment of the lower lobes. No infiltrates. Left Lung: Diffusely hyperinflated. Subsegmental atelectasis in the lung base. No infiltrates. Airways: Patent. Pleura: Biapical pleural-parenchymal thickening. No pleural effusion, pneumothorax or pleural based mass. Abdomen: Diffuse pneumoperitoneum. There is excreted contrast in the gallbladder. 2 calculi in the left kidney, measuring 2 mm and 4 mm. Bones: Mild degenerative changes of the spine. No focal osseous lesions. IMPRESSION: 1. No evidence of pulmonary embolus. 2. Diffuse pneumoperitoneum, likely from recent surgery. 3. Bibasilar atelectasis. 4. Nonobstructing left intrarenal calculi. 5. Cardiomegaly and tortuous aorta. Signed by: Dr. Deshaun Betts MD on 08/26/2018 7:39 PM
--- NOTE | 2018-08-26 20:16 | NUR ---
Results of CT chest read to Dr. Vizcaino, no new orders received.
--- NOTE | 2018-08-26 20:23 | NUR ---
Dr. Suly Galicia notified of results of CT chest. No orders received.
[2018-08-26] MEDS ORDERED: SODIUM CHLORIDE 0.9% 50ML 50 ML ONE (21:45)
[2018-08-26] MEDS ORDERED: IOPAMIDOL 370 MG/ML 200 ML INFUS..BTL INJ ONE (21:45)
[2018-08-27] VITALS (14 sets, daily range): BP systolic 107–142; BP diastolic 58–70
[2018-08-27 05:40] LABS: BASOPHILS % 0.4 % (0.0-1.0); EOSINOPHILS # (AUTO) 0.2 (0.0-0.4); EOSINOPHILS % 4.3 % (0.0-6.0); HEMATOCRIT 27.2 % (34.2-44.1); HEMOGLOBIN 8.9 g/dL (12.0-16.0); LYMPHOCYTES # (AUTO) 1.2 (1.0-3.2); MEAN CORPUSCULAR HEMOGLOBIN 30.4 pg (28-32); MEAN CORPUSCULAR HGB CONC 32.7 g/dL (31-35); MEAN CORPUSCULAR VOLUME 92.8 fL (81-99); MONOCYTES # (AUTO) 0.4 (0.2-0.8); MONOCYTES % 8.5 % (4.4-11.3); NEUTROPHILS # (AUTO) 2.9 (2.1-6.9); NEUTROPHILS % 61.2 % (38.7-80.0); PLATELET COUNT 196 x10e3/uL (140-360); RED BLOOD COUNT 2.93 x10e6/uL (3.6-5.1); RED CELL DISTRIBUTION WIDTH 15.2 % (11.7-14.4)
[2018-08-27 05:50] LABS: ALANINE AMINOTRANSFERASE 8 IU/L (0-55); ALBUMIN 2.4 g/dL (3.5-5.0); ALBUMIN/GLOBULIN RATIO 0.9 (0.8-2.0); ALKALINE PHOSPHATASE 30 IU/L (40-150); ANION GAP 10.4 mmol/L (8-16); BLOOD UREA NITROGEN 12 mg/dL (7-26); BUN/CREATININE RATIO 20 (6-25); CALCIUM 8.5 mg/dL (8.4-10.2); CARBON DIOXIDE 26 mmol/L (22-29); CHLORIDE 107 mmol/L (98-107); CREATININE, SERUM 0.61 mg/dL (0.57-1.11); EST GLOMERULAR FILTRATION RATE > 60 ML/MIN (60-); GLUCOSE 97 mg/dL (74-118); POTASSIUM 3.4 mmol/L (3.5-5.1); SODIUM 140 mmol/L (136-145)
[2018-08-27] MEDS: METRONIDAZOLE 500MG/NS 100ML 100 ML IV SCH ×3 (05:53→17:42)
[2018-08-27] MEDS: METOPROLOL TARTRATE 50 MG TAB PO SCH ×3 (06:00→22:00)
[2018-08-27] MEDS: AMIODARONE HCL 200 MG TAB PO SCH ×2 (08:18→17:45)
[2018-08-27] MEDS: PANTOPRAZOLE 40 MG 10ML VIAL IV SCH (08:18)
[2018-08-27] MEDS: ASPIRIN 81 MG ENTERIC COATED PO SCH (08:18)
[2018-08-27] MEDS: LISINOPRIL 20 MG TAB PO SCH (08:22)
[2018-08-27] MEDS ORDERED: PANTOPRAZOLE SOD 40 MG TABEC ONE (08:23)
[2018-08-27] MEDS ORDERED: MAGNESIUM SULFATE 2GM/50ML 50 ML IV ONE (09:15)
[2018-08-27] MEDS ORDERED: POTASSIUM CHLORIDE 10MEQ EA PO ONE ×2 (09:15→11:15)
--- NOTE | 2018-08-27 10:12 | NUR ---
patient ambulated on unit with at side. she tolerated well.. sitting up in chair
--- NOTE | 2018-08-27 12:33 | Progress Note ---
DATE: Cardiology Progress Note. SUBJECTIVE: The patient is overall feeling better. Denies any chest pain or palpitations. OBJECTIVE: VITAL SIGNS: Temperature is 97.6, heart rate is 56, respirations are 16, oxygen saturation is 100% on room air, and blood pressure is 129/65. GENERAL: Well appearing, well built, in no apparent distress. CARDIOVASCULAR: Bradycardia with ectopy. LUNGS: Clear to auscultation. ABDOMEN: Soft and nontender. EXTREMITIES: Trace edema. NEUROLOGIC: No focal deficits noted. CARDIOVASCULAR MEDICATIONS: Reviewed. LABORATORY DATA: Reviewed. Potassium 3.4. TELEMETRY: Monitoring revealed sinus bradycardia with occasional runs of atrial fibrillation and premature ventricular complexes. IMPRESSION: 1. Paroxysmal atrial fibrillation. 2. Nonsustained ventricular tachycardia. 3. Hyperlipidemia. 4. Hypertension. 5. Diverticulitis, status post colectomy. RECOMMENDATIONS: Continue to monitor closely on telemetry. Decrease metoprolol to q.8 hours rather than q.6 hours. Correct electrolytes to keep potassium greater than 4 and magnesium greater than 2. We will check a limited 2D echocardiogram to reassess left ventricular systolic function. Oneil Jeffries DO BM/MODL /[id number]
[2018-08-27] MEDS: CEFTRIAXONE SOD 1 GM/NS 50 ML 50 ML IV SCH (13:03)
--- NOTE | 2018-08-27 16:03 | NUR ---
Patient alert and responsive, VSS, received from ICU, on Tele #2 running SB/SR/ and PVCs, no resp distress, reported had a BM today this morning, ambulatory, call light within reach, will monitor
--- NOTE | 2018-08-27 19:30 | NUR ---
Received patient awake, not in distress, CESARIO drain to the LLQ noted, dressing to the abdomen intact, call light within easy reach, advised to call for assistance, will continue to monitor
[2018-08-28] VITALS: BP 156/70
[2018-08-28] MEDS: METRONIDAZOLE 500MG/NS 100ML 100 ML IV SCH ×2 (00:15→05:32)
[2018-08-28 04:00] VITALS: BP 129/66
[2018-08-28] MEDS: METOPROLOL TARTRATE 50 MG TAB PO SCH (05:32)
[2018-08-28 06:29] LABS: BASOPHILS % 0.5 % (0.0-1.0); EOSINOPHILS # (AUTO) 0.2 (0.0-0.4); EOSINOPHILS % 4.4 % (0.0-6.0); HEMATOCRIT 27.1 % (34.2-44.1); HEMOGLOBIN 8.7 g/dL (12.0-16.0); LYMPHOCYTES # (AUTO) 1.1 (1.0-3.2); LYMPHOCYTES % 24.6 % (18.0-39.1); MEAN CORPUSCULAR HEMOGLOBIN 29.9 pg (28-32); MEAN CORPUSCULAR HGB CONC 32.1 g/dL (31-35); MEAN CORPUSCULAR VOLUME 93.1 fL (81-99); MONOCYTES # (AUTO) 0.4 (0.2-0.8); MONOCYTES % 10.3 % (4.4-11.3); NEUTROPHILS # (AUTO) 2.6 (2.1-6.9); NEUTROPHILS % 59.7 % (38.7-80.0); PLATELET COUNT 191 x10e3/uL (140-360); RED BLOOD COUNT 2.91 x10e6/uL (3.6-5.1); RED CELL DISTRIBUTION WIDTH 15.3 % (11.7-14.4)
[2018-08-28 07:22] LABS: ANION GAP 9.9 mmol/L (8-16); BLOOD UREA NITROGEN 15 mg/dL (7-26); BUN/CREATININE RATIO 24 (6-25); CALCIUM 8.5 mg/dL (8.4-10.2); CARBON DIOXIDE 22 mmol/L (22-29); CHLORIDE 109 mmol/L (98-107); CREATININE, SERUM 0.62 mg/dL (0.57-1.11); EST GLOMERULAR FILTRATION RATE > 60 ML/MIN (60-); GLUCOSE 95 mg/dL (74-118); POTASSIUM 3.9 mmol/L (3.5-5.1); SODIUM 137 mmol/L (136-145)
[2018-08-28] MEDS ORDERED: PANTOPRAZOLE SOD 40 MG TABEC PO SCH (07:30)
[2018-08-28 08:13] VITALS: BP 120/62
[2018-08-28] MEDS: AMIODARONE HCL 200 MG TAB PO SCH (09:00)
[2018-08-28] MEDS: ASPIRIN 81 MG ENTERIC COATED PO SCH (09:00)
[2018-08-28] MEDS: LISINOPRIL 20 MG TAB PO SCH (09:01)
== END 2018-08-28 10:44 | disposition home or self-care (01) | DRG 330 ==
LOC: OR 06:20 → PACU V 11:40 → ICU 12:38 → MED/SURG 08-23 20:16 → ICU 08-26 00:38 → MED/SURG 08-27 15:22
PROVIDERS: ADMIT Surgery; ATTEND Surgery
PROC: 0UT60ZZ Resection of Left Fallopian Tube, Open Approach (ICD-10-PCS; 2018-08-22)
PROC: 0UT10ZZ Resection of Left Ovary, Open Approach (ICD-10-PCS; 2018-08-22)
PROC: 0DTG0ZZ Resection of Left Large Intestine, Open Approach (ICD-10-PCS; principal; 2018-08-22 07:30)
DX: K57.20 Diverticulitis of large intestine with perforation and abscess without bleeding (principal); I47.1 Supraventricular tachycardia; I11.9 Hypertensive heart disease without heart failure; Z01.810 Encounter for preprocedural cardiovascular examination; Z01.812 Encounter for preprocedural laboratory examination; Z01.811 Encounter for preprocedural respiratory examination; E78.5 Hyperlipidemia, unspecified; I48.0 Paroxysmal atrial fibrillation; D64.9 Anemia, unspecified; D72.829 Elevated white blood cell count, unspecified; E87.6 Hypokalemia
CPT/HCPCS: 36415; 71046; 71260; 80048; 80053; 83735; 84132; 85025; 85379; 88304; 88305; 88307; 93005; 93306; 93970; 97139; J0360; J0694; J0696; J1100; J1885; J2001; J2250; J2370; J2405; J3475; J3480; J7050; Q9967

== ENCOUNTER → 2020-01-08 | Outpatient (CLI) | payer BC ==
[~2020-01-08] MED LIST changes: +FLAGYL250 MG PO; +LEVAQUIN500 MG PO
--- NOTE | 2020-01-08 09:40 | Diagnostic Imaging Report ---
Exam: Bone mineral density study. History: Osteopenia. Comparison: 06/27/2018 Discussion: Evaluation of the left hip and lumbar spine was performed utilizing DEXA Hologic bone densitometer. The study is technically adequate. Left hip total bone mineral density: 0.724gm/cm2, T-score is -1.8, Z-score is -0.5. Left hip femoral neck bone mineral density: 0.645gm/cm2, T-score is -1.8, Z-score is -0.3. Lumbar spine total bone mineral density:0.786gm/cm2, T-score is-2.4, Z-score is -0.5. Impression: 1. Osteopenia of the left hip, fracture risk is increased 2. Osteopenia of the lumbar spine, fracture risk is increased The BMD change versus baseline is -3.0% and the BMD change versus previous -2.9% . Least significant change (LSC) for bone mineral density as provided by sewage plant supervisor is 0.023 g/cm2 for lumbar spine and 0.027 g/cm2 for total hip. 10 -year fracture risk per WHO Fracture Risk Assessment Tool (FRAX) for: Major osteoporotic fracture is 9.8% Hip fracture is 1.4% The above fracture probability is calculated for an untreated patient. Fracture probably may be lower if the patient has received treatment. All treatment decisions require clinical judgment and consideration of individual patient factors, including patient preferences, comorbidities, previous drug use and risk factors not captured in the FRAX model (e.g. frailty, falls, vitamin D deficiency, increased bone turnover, interval significant decline in BMD). The patient's fracture risk is compared to an age-matched control. Medical evaluation for secondary causes of low bone bone mineral density may be appropriate. Correlate clinically for the necessity and timing of the next bone mineral density study. Signed by: Dr. Jong Noyola M.D. on 01/08/2020 9:37 AM
== END ==
LOC: MAMMO 08:44
PROVIDERS: ATTEND Internal Medicine
DX: Z12.31 Encounter for screening mammogram for malignant neoplasm of breast (principal); M81.0 Age-related osteoporosis without current pathological fracture
CPT/HCPCS: 77067; 77080

== ENCOUNTER → 2020-03-01 | Day surgery (SDC) | payer BC ==
[2020-02-25 08:29] LABS: BASOPHILS % 0.4 % (0.0-1.0); EOSINOPHILS # (AUTO) 0.2 (0.0-0.4); EOSINOPHILS % 4.2 % (0.0-6.0); HEMATOCRIT 41.1 % (34.2-44.1); HEMOGLOBIN 13.8 g/dL (12.0-16.0); LYMPHOCYTES # (AUTO) 1.2 (1.0-3.2); LYMPHOCYTES % 24.5 % (18.0-39.1); MEAN CORPUSCULAR HEMOGLOBIN 31.9 pg (28-32); MEAN CORPUSCULAR HGB CONC 33.6 g/dL (31-35); MEAN CORPUSCULAR VOLUME 95.1 fL (81-99); MONOCYTES # (AUTO) 0.3 (0.2-0.8); MONOCYTES % 6.8 % (4.4-11.3); NEUTROPHILS % 63.9 % (38.7-80.0); PLATELET COUNT 162 x10e3/uL (140-360); RED BLOOD COUNT 4.32 x10e6/uL (3.6-5.1)
[~2020-03-01] MED LIST changes: +ASPIRIN81 MG PO; +BENEFIBER1 EAC1 PO; +CULTURELLE1 EACH PO; +ESTROGEN CREAM TOP; +HYOSCYAMINE 0.125 MG TAB ONE; +LEVOTHYROXINE50 MCG PO; +LIDOCAINE HCL 2% LOCAL INJ 5 ML SDV VIAL INJ ONE; +METOPROLOL SUCC50 MG PO; +MIDAZOLAM HCL 2 MG/2 ML VIAL ONE; +PROPOFOL IV EMULSION 10 MG/ML 20 ML VIAL ONE
[2020-03-01 12:35] VITALS: BP 137/69
== END | disposition home or self-care (01) ==
LOC: OR 08:21
PROVIDERS: ATTEND Internal Medicine Gastroenterology
DX: Z09 Encounter for follow-up examination after completed treatment for conditions other than malignant neoplasm (principal); D12.5 Benign neoplasm of sigmoid colon; K57.30 Diverticulosis of large intestine without perforation or abscess without bleeding; K64.8 Other hemorrhoids; Z98.0 Intestinal bypass and anastomosis status; I10 Essential (primary) hypertension; E78.5 Hyperlipidemia, unspecified; N20.0 Calculus of kidney; R00.1 Bradycardia, unspecified; I45.10 Unspecified right bundle-branch block; Z90.49 Acquired absence of other specified parts of digestive tract; Z01.810 Encounter for preprocedural cardiovascular examination; Z01.812 Encounter for preprocedural laboratory examination; Z20.828 Contact with and (suspected) exposure to other viral communicable diseases; Z79.82 Long term (current) use of aspirin
CPT/HCPCS: 36415; 45384; 85025; 93005; J2001; J2250; J2704; U0002; 45378

== ENCOUNTER → 2021-01-11 | Outpatient (CLI) | payer OTHER ==
[~2021-01-11] MED LIST changes: -HYOSCYAMINE 0.125 MG TAB ONE; -LIDOCAINE HCL 2% LOCAL INJ 5 ML SDV VIAL INJ ONE; -MIDAZOLAM HCL 2 MG/2 ML VIAL ONE; -PROPOFOL IV EMULSION 10 MG/ML 20 ML VIAL ONE
== END ==
LOC: MAMMO 10:14
PROVIDERS: ATTEND Internal Medicine
DX: Z12.31 Encounter for screening mammogram for malignant neoplasm of breast (principal); M85.88 Other specified disorders of bone density and structure, other site
CPT/HCPCS: 77067; 77080

== ENCOUNTER → 2022-01-13 | Outpatient (CLI) | payer BC | LOC: MAMMO 09:36 | PROVIDERS: ATTEND Internal Medicine | DX: Z12.31 Encounter for screening mammogram for malignant neoplasm of breast (principal); M85.88 Other specified disorders of bone density and structure, other site; Z78.0 Asymptomatic menopausal state | CPT/HCPCS: 77067; 77080 ==

== ENCOUNTER → 2022-02-07 | Outpatient (CLI) | payer BC | LOC: RAD 09:37 | PROVIDERS: ATTEND Internal Medicine | DX: J40 Bronchitis, not specified as acute or chronic (principal) | CPT/HCPCS: 71046 ==

== ENCOUNTER → 2023-01-26 | Outpatient (REF) | payer BC | LOC: MAMMO 10:05 | PROVIDERS: ATTEND Internal Medicine | DX: Z12.31 Encounter for screening mammogram for malignant neoplasm of breast (principal); M85.88 Other specified disorders of bone density and structure, other site | CPT/HCPCS: 77067; 77080 ==

== ENCOUNTER → 2024-01-28 | Outpatient (REF) | payer BC ==
[~2024-01-28] MED LIST changes: +APPLE CIDER VI300 MG; +ATORVASTATIN CA10 MG PO; +MYRBETRIQ50 MG PO; +UQORA
== END | disposition home or self-care (01) ==
LOC: MAMMO 08:45
PROVIDERS: ATTEND Internal Medicine
DX: Z12.31 Encounter for screening mammogram for malignant neoplasm of breast (principal); Z13.820 Encounter for screening for osteoporosis; M85.88 Other specified disorders of bone density and structure, other site
CPT/HCPCS: 77067; 77080

== ENCOUNTER → 2025-01-27 | Outpatient (REF) | payer BC | LOC: MAMMO 09:23 | PROVIDERS: ATTEND Internal Medicine | DX: Z12.31 Encounter for screening mammogram for malignant neoplasm of breast (principal); M85.88 Other specified disorders of bone density and structure, other site | CPT/HCPCS: 77067; 77080 ==